=== PATIENT | male | born 1960 | race Caucasian/White ===

== ENCOUNTER → 2025-05-09 10:49 | Outpatient (CLI) | payer MEDICARE, OTHER, SELFPAY ==
--- NOTE | 2025-05-09 10:50 | DI.RAD.S_ITS ---
PROCEDURE: XR HIP W PEL IF DONE RT 2V INDICATIONS: chronic right hip pain TECHNIQUE: AP pelvis with lateral view of the right hip. COMPARISON: None. FINDINGS: Bones: No acute fractures or dislocations. Pelvic ring appears intact. No suspicious bony lesions. Mild degenerative changes are seen in the hips bilaterally with mild joint space narrowing and small marginal osteophytes, slightly worse on the right. Degenerative changes are seen in the included spine. Soft tissues: The visualized bowel gas pattern is normal. No suspicious soft tissue calcifications. IMPRESSION: Mild bilateral hip osteoarthrosis, slightly worse on the right. Approved by: Shun Albarran M.D. on 05/09/2025 at 17:22
== END ==
PROVIDERS: PCP Family Medicine; Referring Provider Family Medicine; Visit Provider Family Medicine
DX: M16.0 Bilateral primary osteoarthritis of hip (principal); M25.551 Pain in right hip; G89.29 Other chronic pain
CPT/HCPCS: 73502